=== PATIENT | male | born 1970 | race Caucasian/White ===

== ENCOUNTER 2024-03-28 11:49 | Emergency (ER) | payer OTHER, SELFPAY ==
[2024-03-28 11:55] VITALS: BP 138/74
[2024-03-28 12:36] LABS: % Basophils 0.8 % (0-2); % Eosinophils 1.8 % (0-6); % Immature Granulocytes 0.2 % (0-0.5); % Lymphocytes 32.9 % (20.5-51.1); % Monocytes 8.2 % (1.7-9.3); % Neutrophils 56.1 % (42.2-75.2); Absolute Eosinophils 0.1 10^3/uL (0-0.7); Absolute Lymphocytes 1.7 10^3/uL (1.2-3.4); Absolute Monocytes 0.4 10^3/uL (0.1-0.6); Absolute Neutrophils 2.9 10^3/uL (1.4-6.5); Hematocrit 46.9 % (39.0-52.0); Mean Corp Hgb Conc. 36.2 g/dL (33.0-37.0); Mean Corpuscular Hgb 32.9 pg (27.0-31.0); Mean Corpuscular Volume 90.7 fL (80.0-94.0); Mean Platelet Volume 9.8 fL (7.4-10.4); Nucleated Red Blood Cells % 0 % (-); Platelet Count 194 10^3/uL (130-400); Red Blood Cell Count 5.17 10^6/uL (4.70-6.10); Red Cell Dist. Width 12.5 % (11.5-14.5); White Blood Cell Count 5.1 10^3/uL (4.8-10.8)
[2024-03-28 12:59] LABS: ALT (SGPT) 36 U/L (0-50); AST (SGOT) 29 U/L (17-59); Albumin 4.4 g/dl (3.5-5.0); Alkaline Phosphatase 77 U/L (38-126); Blood Urea Nitrogen 22 mg/dl (9-20); Calcium 9.2 mg/dl (8.4-10.2); Carbon Dioxide 25 mmol/L (22-30); Chloride 103 mmol/L (98-107); Glucose 117 mg/dl (70-99); Potassium 4.6 mmol/L (3.5-5.1); Sodium 140 mmol/L (135-145); Total Bilirubin 0.6 mg/dl (0.2-1.3); Total Protein 6.6 g/dl (6.3-8.2); eGFR > 60.00
[2024-03-28 13:27] LABS: TSH Reflex To Free T4 1.44 uIU/ml (0.47-4.68)
[2024-03-28 14:05] VITALS: BP 136/68
--- NOTE | 2024-03-28 14:15 | ED.GENMED ---
History of Present Illness
General
Chief Complaint: Heart Rate Problem
Source: patient
Time Seen by Provider: 03/28/24 14:01
History of Present Illness
History of Present Illness:
54-year-old male presents to the emergency room complaining of 'atrial fibrillation'. Patient [place] palpit[place]. Patient states that he sometimes gets ocular migraines. When he develops an ocular
migraine he treats it with NSAIDs drinks caffeinated beverages. He consumed a large amount of iced tea which he said was strong. Shortly thereafter he began having the sensation that his heart was racing. He used his [employer] watch to obtain a
rhythm strip. The [employer] watch told him he was in A-fib. Symptoms persisted throughout the evening into the night. He checked his watch several times and it continued to say A-fib. His used the same watch to monitor her rhythm and it is in
normal sinus rhythm. Patient woke this morning continue to have palpitations prompting his decision to come to the ER for evaluation. Currently the patient is not experiencing palpitations. He denies any cardiac history. He did have back surgery
in the past which required a communications planner to clear him. Cardiology evaluation was performed the [facility] and was unremarkable. He endorses moderate alcohol use.
Phy Exam
Physical Exam
Physical Exam:
General: Awake, Alert, Oriented X3. No acute distress.
Vitals: unremarkable
Head: Atraumatic
Eyes: Pupils equal, EOMI
Throat: Airway intact, no exudates
Neck: Trachea midline
Lungs: Clear and equal b/l
Heart: Regular rate, no murmurs
Abd: Soft, Nontender, No pulsatile mass
Neuro: Nonfocal
Skin: Warm, dry, no rash
Extremities: pulses equal b/l, no edema
Scores
[id number] Score for Afib Stroke Risk
Age in Years (65=0, 65-74=1, >/=75=2): <65
Sex (Female=+1): Male
Congestive Heart Failure History (Yes=+1): No
Hypertension History (Yes=+1): No
Stroke/TIA/Thromboembolism History (Yes=+2): No
Vascular Disease History (Yes=+1): No
Diabetes Mellitus (Yes=+1): No
Score: 0
Anticoagulation Recommendations: Anticoagulation not indicated (as validated in nonvalvular afib). Consider anticoagulation irrespective of score in patients with HCM
Course
Orders/Labs/Results
Orders:
Orders
03/28/24 11:59
Electrocardiogram (*1) Urgent
Reason for Study: Palpitations
EKG- Treatment ONCE
03/28/24 12:16
CMP [Comprehensive Metabolic Panel] Urgent
Complete Blood Count/With Diff Urgent
TSH Reflex To Free T4 Urgent
Abnormal Lab Results
03/28/24
12:16
MCH 32.9 H pg
(27.0-31.0)
BUN 22 H mg/dl
(9-20)
Glucose 117 H mg/dl
(70-99)
03/28/24 12:16
03/28/24 12:16
Vital Signs
Initial and Last Documented VS:
Initial Vital Signs
Temp Pulse Resp BP Pulse Ox
98.2 F 63 16 138/74 97
03/28/24 11:55 03/28/24 11:55 03/28/24 11:55 03/28/24 11:55 03/28/24 11:55
Last Documented Vital Signs
Temp Pulse Resp BP Pulse Ox
98.2 F 57 19 103/66 99
03/28/24 11:55 03/28/24 15:00 03/28/24 15:00 03/28/24 15:00 03/28/24 14:05
MDM/Problems Addressed
Differential Diagnosis Includes:
psvt, paroxysmal a fib, pac's, pvc's
MDM/Problems Addressed:
Patient presents for evaluation of palpitations. EKG here shows sinus bradycardia. Patient was able to pull up a rhythm strip on his phone from his watch that does not fact look like periods of A-fib. His [id number] score is 0. Therefore
anticoagulation is not indicated at this time. He can follow-up with cardiology to discuss long-term management but for the short-term we will prescribe propranolol if he has episodes that are not breaking on the room. Advised him to return to the
emergency room if propranolol does not work, he is chest pain shortness of breath or feels uncomfortable in any way.
*Pulse Oximetry
Patient hypoxic: no
*EKG
Interpreted by ED Provider?: Yes
Interpretation: abnormal
Comparison EKG: no comparison EKG present
Heart Rate: 58
Rate: bradycardiac
Rhythm: sinus
[place]: normal axis
Interval: normal interval
QRS Pattern: normal QRS
Ischemia: no ischemia
*[employer] Interpretation
Rate: bradycardiac
Interpretation: normal
Rhythm: sinus
*Critical Care Note
Total Time (30-74mins, 75-104mins- exclusive of procedures): Not Applicable
ED Attending Note
-
Portions of this chart may have been created with voice recognition software.� Occasional wrong word or��sound alike� substitutions may have occurred due to the inherent limitations of voice recognition software.
Discharge Plan
Departure
Patient Disposition: Home (Routine Discharge)
Date of Disposition: 03/28/24
Time of Disposition: 15:04
Patient with high blood pressure during this ER visit?: Yes
Condition: Good
Discharge Problem:
Paroxysmal A-fib
Instructions: Atrial Fibrillation (DC), BLOOD PRESSURE
Prescriptions:
New
propranolol 20 mg tablet
20 mg PO BID PRN (Reason: rapid heart rate) Qty: 20 0RF
Referrals:
Mason Dale MD [Active] -
Activity Restrictions/Additional Instructions:
Call Dr. Dale's office an make the next available appointment. You can take a dose of propranolol if you develop rapid heart rate that is not normalizing after 30 minutes or so. Return to ER for chest pain, shortness of breath or any concerns.
Interventions
Interventions:
*Risk Screen - Suicide Last Done: 03/28/24 11:55
*General Assessment Last Done: 03/28/24 11:55
*ED COVID-19 Vaccine History Last Done: 03/28/24 11:55
ED- Cardiac Assessment Last Done: 03/28/24 14:05
ED- Pulmonary Assessment Last Done: 03/28/24 14:05
Discharge Date and Time
Print Language: SERBIAN
[2024-03-28 15:00] VITALS: BP 103/66
== END 2024-03-28 15:23 | disposition home or self-care (01) ==
LOC: EMR 11:49
PROVIDERS: Emergency Medicine; EMERGENCY PHYSICIAN Emergency Medicine; FAMILY PHYSICIAN Family Medicine
DX: I48.0 Paroxysmal atrial fibrillation (principal); R03.0 Elevated blood-pressure reading, without diagnosis of hypertension
CPT/HCPCS: 99284; 80053; 84443; 85025; 93005